=== PATIENT | female | born 1960 | race Caucasian/White ===

== ENCOUNTER 2023-08-27 02:36 | Emergency (ER) | payer BC ==
[~2023-08-27] VITALS: Ht 165.1 cm; Wt 59.0 kg
[2023-08-27 02:51] VITALS: TEMP 98; O2SAT 98
[2023-08-27 04:30] VITALS: BP 130/82; PULSE 89; RESP 20
[2023-08-27] MEDS ORDERED: IBUPROFEN 800MG TABLET PO ONE (04:30)
[2023-08-27] MEDS ORDERED: BENZONATATE 200MG CAPSULE PO ONE (04:30)
[2023-08-27 04:47] LABS: HEMOGLOBIN. 10.5 g/dL (12.0-16.0); MEAN CORPUSCULAR HGB CONC 35.1 g/dL (31.0-37.0); MEAN CORPUSCULAR VOLUME 110.9 fL (81.0-99.0); MEAN PLATELET VOLUME 7.5 fl (7.4-10.4); PLATELET 305 x1000/uL (130-400); RED BLOOD CELL COUNT 2.71 mill/uL (4.2-5.4); RED CELL DISTRIBUTION WIDTH 18.2 % (11.6-14.6); WHITE BLOOD COUNT 11.8 x1000/uL (4.5-11.0)
[2023-08-27 05:19] LABS: ALANINE AMINOTRANSFERASE 12 IU/L (10-49); ALBUMIN 4.3 g/dL (3.2-4.8); ASPARTATE AMINOTRANSFERASE 33 IU/L (<34); BILIRUBIN TOTAL 0.4 mg/dL (0.1-1.0); CARBON DIOXIDE 31 mEq/L (21-32); CHLORIDE 94 mEq/L (98-107); CREATININE 0.8 mg/dL (0.6-1.0); GLUCOSE 93 mg/dL (70-105); POTASSIUM 2.9 mEq/L (3.5-5.1); PROTEIN TOTAL 7.6 g/dL (6.0-8.3); SODIUM 131 mEq/L (136-145); TROPONIN I HIGH SENSITIVITY 10 ng/L (3.0-34); UREA NITROGEN BLOOD 12 mg/dL (9-23)
[2023-08-27 05:45] LABS: DIFFERENTIAL COMMENT 1
[2023-08-27] MEDS ORDERED: TOPUD PO (06:14)
[2023-08-27] MEDS ORDERED: GUAI400T93 PO (06:14)
[2023-08-27 12:45] LABS: PLATELET ESTIMATE NORMAL
== END 2023-08-27 06:38 | disposition home or self-care (01) ==
LOC: ER 02:36
DX: U07.1 COVID-19 (principal); J45.909 Unspecified asthma, uncomplicated; Z88.1 Allergy status to other antibiotic agents; Z88.6 Allergy status to analgesic agent; Z88.5 Allergy status to narcotic agent; Z88.0 Allergy status to penicillin; Z88.8 Allergy status to other drugs, medicaments and biological substances; Z91.013 Allergy to seafood; Z88.4 Allergy status to anesthetic agent; Z88.2 Allergy status to sulfonamides; Z79.899 Other long term (current) drug therapy; Z90.49 Acquired absence of other specified parts of digestive tract; Z98.890 Other specified postprocedural states
CPT/HCPCS: 99284; 71045; 87426; 80053; 83880; 85025; 84484; 36415; C9803